=== PATIENT | female | born 1955 | race Caucasian/White ===

== ENCOUNTER → 2017-09-11 | Outpatient (CLI) | payer BC ==
[2017-09-11 08:19] LABS: ALBUMIN 3.9 g/dL (3.5-5.0); BUN/CREATININE RATIO 25.5 (6.0-26.0); CALCIUM 9.3 mg/dL (8.4-10.2); POTASSIUM 3.7 mmol/L (3.6-5.0); TOTAL BILIRUBIN 0.7 mg/dL (0.2-1.3); TOTAL PROTEIN 7.2 g/dL (6.3-8.2)
== END ==
LOC: LAB 07:50
PROVIDERS: Family Medicine
DX: I10 Essential (primary) hypertension (principal); R20.2 Paresthesia of skin; Z13.6 Encounter for screening for cardiovascular disorders; Z13.1 Encounter for screening for diabetes mellitus

== ENCOUNTER → 2017-09-23 | Outpatient (CLI) | payer BC | LOC: RAD 09:10 | DX: Z12.31 Encounter for screening mammogram for malignant neoplasm of breast (principal) | CPT/HCPCS: G0202 ==

== ENCOUNTER → 2017-10-27 | Outpatient (CLI) | payer BC ==
[2017-10-27 08:05] LABS: FASTING GLUCOSE 102 mg/dL (65-105)
[2017-10-27 11:55] LABS: 1 HOUR POST GLUCOLA-GLUCOSE 146 mg/dL (65-105); 2 HOUR POST GLUCOLA-GLUCOSE 115 mg/dL (65-105)
[2017-10-28 02:07] LABS: FOLATE (FOLIC ACID) 16.3 ng/mL (7.0-31.4)
[2017-10-29 01:05] LABS: RPR (VDRL) Non-reactive (())
[2017-10-30 05:57] LABS: VITAMIN B1 135 nmol/L (70-180)
== END ==
LOC: RAD 07:02
PROVIDERS: Psychiatry & Neurology Neurology
DX: M25.572 Pain in left ankle and joints of left foot (principal); G62.9 Polyneuropathy, unspecified

== ENCOUNTER → 2017-12-28 | Outpatient (CLI) | payer BC | LOC: VAS 16:42 → RAD 17:00 | DX: I10 Essential (primary) hypertension (principal); R06.09 Other forms of dyspnea; R60.0 Localized edema ==

== ENCOUNTER → 2018-08-03 | Outpatient (CLI) | payer BC ==
[2018-08-03 07:57] LABS: ALBUMIN 4.1 g/dL (3.5-5.0); CALCIUM 9.2 mg/dL (8.4-10.2); POTASSIUM 3.5 mmol/L (3.6-5.0); TOTAL BILIRUBIN 0.6 mg/dL (0.2-1.3); TOTAL PROTEIN 7.3 g/dL (6.3-8.2)
== END ==
LOC: LAB 07:11
PROVIDERS: Family Medicine
DX: Z13.6 Encounter for screening for cardiovascular disorders (principal); Z13.1 Encounter for screening for diabetes mellitus; I10 Essential (primary) hypertension; R20.2 Paresthesia of skin

== ENCOUNTER → 2018-09-08 | Outpatient (CLI) | payer BC ==
[2018-09-08 08:50] LABS: CALCIUM 9.2 mg/dL (8.4-10.2)
== END ==
LOC: LAB 08:30
PROVIDERS: Family Medicine
DX: I10 Essential (primary) hypertension (principal); R20.2 Paresthesia of skin; R20.0 Anesthesia of skin; R73.09 Other abnormal glucose

== ENCOUNTER → 2018-09-15 | Outpatient (CLI) | payer BC | LOC: MAMMO 08:25 | DX: Z12.31 Encounter for screening mammogram for malignant neoplasm of breast (principal) ==

== ENCOUNTER 2018-12-23 01:26 | Emergency (ER) | payer BC ==
[2018-12-23] MEDS ORDERED: NORVASC 10MG10 MG PO (01:38)
[2018-12-23] MEDS ORDERED: LISINOPRIL AND1 TA1 PO (01:38)
[2018-12-23] MEDS ORDERED: LOPRESSOR 225 MG/TAB PO (01:39)
[2018-12-23] MEDS ORDERED: FEXOFENADINE H180 M1 PO (01:39)
[2018-12-23] MEDS ORDERED: CALCIUM CITRAT1 EAC9 PO (01:39)
[2018-12-23] MEDS ORDERED: MULTIVITAMIN1 SGL PO (01:40)
[2018-12-23] MEDS ORDERED: RT ALBUTEROL CC18 GM IH (01:41)
[2018-12-23 02:53] VITALS: BP 178/79
== END 2018-12-23 02:54 | disposition home or self-care (01) ==
LOC: ED 01:26
DX: T18.108A Unspecified foreign body in esophagus causing other injury, initial encounter (principal); J45.909 Unspecified asthma, uncomplicated; I10 Essential (primary) hypertension; Z90.49 Acquired absence of other specified parts of digestive tract

== ENCOUNTER 2019-02-06 02:45 | Emergency (ER) | payer BC ==
[~2019-02-06] VITALS: Ht 170.2 cm; Wt 110.5 kg
[~2019-02-06 02:45] MED LIST: CALCIUM CITRAT1 EAC9 PO; FEXOFENADINE H180 M1 PO; LISINOPRIL AND1 TA1 PO; LOPRESSOR 225 MG/TAB PO; MULTIVITAMIN1 SGL PO; NORVASC 10MG10 MG PO; RT ALBUTEROL CC18 GM IH
[2019-02-06 03:53] LABS: EOS # 0.2 (0.04-0.40); EOS % 2.3 % (1.0-5.0); HEMATOCRIT 43.6 % (37.0-47.0); HEMOGLOBIN 14.5 g/dL (12.5-16.0); LYMPH# 1.9 (1.50-4.00); MEAN CELL VOLUME 88 fl (78-100); MEAN CORPUSCULAR HEMOGLOBIN 29 pg (27-31); MEAN CORPUSCULAR HGB CONC 33 g/dL (33-37); MEAN PLATELET VOLUME 10.1 fl (7.4-10.4); MONO # 0.9 (0.20-0.80); NEU # 6.5 (1.40-6.50); PLATELET COUNT 261 K/mm3 (130-400); RED BLOOD COUNT 4.93 M/mm3 (4.10-5.30); RED CELL DISTRIBUTION WIDTH 13.5 % (11.5-14.5); WHITE BLOOD COUNT 9.5 K/mm3 (4.8-10.8)
[2019-02-06 04:20] LABS: ALBUMIN 4.2 g/dL (3.4-4.8); CALCIUM 9.4 mg/dL (8.4-10.2); POTASSIUM 3.2 mmol/L (3.5-5.1); TOTAL BILIRUBIN 0.5 mg/dL (0.2-1.2); TOTAL PROTEIN 7.2 g/dL (6.2-8.1)
[2019-02-06] MEDS ORDERED: ELIQUIS5 MG PO (05:02)
[2019-02-06 05:16] VITALS: BP 179/90
== END 2019-02-06 05:17 | disposition home or self-care (01) ==
LOC: ED 02:45
PROVIDERS: Family Medicine
DX: I48.91 Unspecified atrial fibrillation (principal); I10 Essential (primary) hypertension; E87.6 Hypokalemia; G62.9 Polyneuropathy, unspecified

== ENCOUNTER 2019-07-29 21:17 | Emergency (ER) | payer BC ==
[~2019-07-29] VITALS: Ht 170.2 cm; Wt 113.6 kg
[~2019-07-29 21:17] MED LIST changes: +CLARITIN LIQUI-10 MG PO; +ELIQUIS5 MG PO; +MACROBID 100 M100 MG PO; +POTASSIUM CHLO20 ME4 PO
[2019-07-29] MEDS ORDERED: LISINOPRIL40 MG PO (21:29)
[2019-07-29 21:59] LABS: EOS # 0.2 (0.04-0.40); EOS % 2.5 % (1.0-5.0); HEMATOCRIT 40.7 % (37.0-47.0); HEMOGLOBIN 13.3 g/dL (12.5-16.0); LYMPH# 2.1 (1.50-4.00); MEAN CELL VOLUME 89 fl (78-100); MEAN CORPUSCULAR HEMOGLOBIN 29 pg (27-31); MEAN CORPUSCULAR HGB CONC 33 g/dL (33-37); MEAN PLATELET VOLUME 10.6 fl (7.4-10.4); NEU # 5.8 (1.40-6.50); PLATELET COUNT 239 K/mm3 (130-400); RED BLOOD COUNT 4.56 M/mm3 (4.10-5.30); RED CELL DISTRIBUTION WIDTH 13.3 % (11.5-14.5); WHITE BLOOD COUNT 9.2 K/mm3 (4.8-10.8)
[2019-07-29 22:08] LABS: ALBUMIN 4.2 g/dL (3.4-4.8); POTASSIUM 3.5 mmol/L (3.5-5.1)
[2019-07-29 22:09] LABS: CALCIUM 9.4 mg/dL (8.3-10.5)
[2019-07-29 22:11] LABS: TOTAL PROTEIN 7.3 g/dL (6.2-8.1)
[2019-07-29 22:12] LABS: TOTAL BILIRUBIN 0.4 mg/dL (0.2-1.2)
[2019-07-29 22:58] VITALS: BP 165/90
== END 2019-07-29 22:59 | disposition home or self-care (01) ==
LOC: ED 21:17
PROVIDERS: Family Medicine
DX: I48.91 Unspecified atrial fibrillation (principal); G47.30 Sleep apnea, unspecified; Z95.9 Presence of cardiac and vascular implant and graft, unspecified; Z79.01 Long term (current) use of anticoagulants; Z98.890 Other specified postprocedural states

== ENCOUNTER → 2019-09-14 | Outpatient (CLI) | payer BC ==
[~2019-09-14] MED LIST changes: +LISINOPRIL40 MG PO
== END ==
LOC: MAMMO 08:11
DX: Z12.31 Encounter for screening mammogram for malignant neoplasm of breast (principal)

== ENCOUNTER → 2020-09-18 | Outpatient (CLI) | payer MEDICARE, BC | LOC: MAMMO 11:17 | DX: Z12.31 Encounter for screening mammogram for malignant neoplasm of breast (principal) ==

== ENCOUNTER → 2021-09-05 | Day surgery (SDC) | payer MEDICARE, BC | LOC: MSO 09:45 | DX: Z12.11 Encounter for screening for malignant neoplasm of colon (principal); Z86.010 Personal history of colon polyps; K57.30 Diverticulosis of large intestine without perforation or abscess without bleeding; J45.909 Unspecified asthma, uncomplicated; G47.33 Obstructive sleep apnea (adult) (pediatric); I48.91 Unspecified atrial fibrillation; Z79.01 Long term (current) use of anticoagulants; Z79.899 Other long term (current) drug therapy | CPT/HCPCS: 00812; J2704; J7120 ==

== ENCOUNTER → 2021-09-24 | Outpatient (CLI) | payer MEDICARE, BC | LOC: MAMMO 10:43 | DX: Z12.31 Encounter for screening mammogram for malignant neoplasm of breast (principal) ==

== ENCOUNTER 2022-02-07 05:17 | Emergency (ER) | payer MEDICARE, BC ==
[~2022-02-07] VITALS: Ht 170.2 cm; Wt 115.4 kg
[2022-02-07] MEDS ORDERED: BYSTOLIC20 MG PO (05:36)
[2022-02-07] MEDS ORDERED: ADVAIR DISKUS1 DS1 IH (05:37)
[2022-02-07] MEDS ORDERED: SPIRIVA RE2.5 MCG/Ac IH (05:38)
[2022-02-07] MEDS ORDERED: MULTIVITAMIN (05:39)
[2022-02-07] MEDS ORDERED: AMIODARONE200 MG PO (05:41)
[2022-02-07 06:03] LABS: BASO # 0.04 K/mm3 (0.02-0.10); EOS # 0.25 K/mm3 (0.04-0.40); EOS % 2.6 % (1.0-5.0); HEMATOCRIT 41.1 % (37.0-47.0); LYMPH# 1.13 K/mm3 (1.50-4.00); MEAN CELL VOLUME 91 fl (78-100); MEAN CORPUSCULAR HEMOGLOBIN 29 pg (27-31); MEAN CORPUSCULAR HGB CONC 32 g/dL (33-37); MEAN PLATELET VOLUME 10.2 fl (7.4-10.4); MONO # 0.75 K/mm3 (0.20-0.80); NEU # 7.31 K/mm3 (1.40-6.50); PLATELET COUNT 204 K/mm3 (130-400); WHITE BLOOD COUNT 9.5 K/mm3 (4.8-10.8)
[2022-02-07 06:09] LABS: ALBUMIN 4.1 g/dL (3.4-4.8); POTASSIUM 3.3 mmol/L (3.5-5.1); SODIUM 143 mmol/L (136-145)
[2022-02-07 06:11] LABS: CALCIUM 9.7 mg/dL (8.3-10.5)
[2022-02-07 06:12] LABS: GLUCOSE 111 mg/dL (65-105); TOTAL PROTEIN 7.5 g/dL (6.2-8.1)
[2022-02-07 06:13] LABS: CARBON DIOXIDE 23 mmol/L (23-31)
[2022-02-07 06:14] LABS: TOTAL BILIRUBIN 0.7 mg/dL (0.2-1.2)
[2022-02-07 06:17] LABS: AST-SGOT 16 U/L (5-34)
[2022-02-07 06:18] LABS: ALT/SGPT 18 U/L (0-55)
[2022-02-07 06:31] LABS: D-DIMER 0.32 mg/L FEU (0.15-0.50); TROPONIN-I < 0.030 ng/mL (<0.030)
[2022-02-07] MEDS ORDERED: ALDACTONE25 M1 PO (08:22)
[2022-02-07 08:29] VITALS: BP 170/88
== END 2022-02-07 08:45 | disposition home or self-care (01) ==
LOC: ED 05:17
PROVIDERS: Family Medicine
DX: R06.00 Dyspnea, unspecified (principal)
CPT/HCPCS: J1940

== ENCOUNTER → 2022-10-14 | Outpatient (CLI) | payer MEDICARE, BC ==
[~2022-10-14] MED LIST changes: +ADVAIR DISKUS1 DS1 IH; +ALDACTONE25 M1 PO; +AMIODARONE200 MG PO; +BYSTOLIC20 MG PO; +MULTIVITAMIN; +SPIRIVA RE2.5 MCG/Ac IH
== END ==
LOC: LAB 12:03
DX: Z20.822 Contact with and (suspected) exposure to COVID-19 (principal)

== ENCOUNTER 2022-12-22 08:00 | Outpatient (RCR) | payer MEDICARE, BC | END 2022-12-26 | disposition home or self-care (01) | LOC: CARDREHAB | DX: I50.32 Chronic diastolic (congestive) heart failure (principal) ==

== ENCOUNTER 2024-08-02 10:30 | Outpatient (RCR) | payer MEDICARE, BC ==
[~2024-08-02 10:30] MED LIST changes: +ENTRESTO 97 MG1 EACH PO; +FLECAINIDE ACET50 MG PO; +JARDIANCE10 MG PO
== END 2024-08-27 ==
LOC: OT
DX: M79.641 Pain in right hand (principal)

== ENCOUNTER → 2024-10-07 | Outpatient (CLI) | payer MEDICARE, BC | LOC: MAMMO 13:22 | DX: Z12.31 Encounter for screening mammogram for malignant neoplasm of breast (principal); N63.10 Unspecified lump in the right breast, unspecified quadrant ==

== ENCOUNTER → 2024-10-11 | Outpatient (CLI) | payer MEDICARE, BC | LOC: RAD 07:45 | DX: N60.11 Diffuse cystic mastopathy of right breast (principal) ==